=== PATIENT | female | born 1970 | race Caucasian/White ===

== ENCOUNTER → 2016-07-23 | Outpatient (CLI) | payer OTHER, BC ==
--- NOTE | 2016-07-23 16:48 | XR ---
EXAMINATION TYPE: XR knee complete RT DATE OF EXAM: 07/23/2016 4:44 PM COMPARISON: NONE HISTORY: Knee contusion TECHNIQUE: 3 view right knee FINDINGS: No acute fractures evident. Joint spaces are preserved. No joint effusion is present. IMPRESSION: 1. Normal three-view right knee
== END | disposition home or self-care (01) ==
LOC: RADXRMAIN 16:25
PROVIDERS: ATTEND Emergency Medicine
DX: S80.01XA Contusion of right knee, initial encounter (principal)

== ENCOUNTER → 2016-12-18 | Outpatient (CLI) | payer BC ==
[2016-12-18 13:41] LABS: Basophils % (A) 0 %; CH 31.9; CHCM 35.2; Eosinophils # (A) 0.1 k/uL (0-0.7); Eosinophils % (A) 1 %; HCT 46.5 % (34.0-46.0); HDW 2.75; HGB 15.6 gm/dL (11.4-16.0); Luc # (Auto) 0.09; Luc % (Auto) 2; Lymphocytes # (A) 1.5 k/uL (1.0-4.8); Lymphocytes % (A) 26 %; MCH 30.4 pg (25.0-35.0); MCHC 33.5 g/dL (31.0-37.0); MCV 90.9 fL (80.0-100.0); Mean Platelet Volume 7.4; Monocytes # (A) 0.4 k/uL (0-1.0); Monocytes % (A) 6 %; Neutrophils # (A) 3.6 k/uL (1.3-7.7); Neutrophils % (A) 65 %; RBC 5.12 m/uL (3.80-5.40); WBC 5.6 k/uL (3.8-10.6); WBC (Perox) 5.56
[2016-12-18 14:21] LABS: ALT 40 U/L (9-52); AST 30 U/L (14-36); Alkaline Phosphatase 110 U/L (38-126); Anion Gap 9 mmol/L; Blood Urea Nitrogen 14 mg/dL (7-17); Calcium 9.5 mg/dL (8.4-10.2); Carbon Dioxide 26 mmol/L (22-30); Chloride 106 mmol/L (98-107); Cholesterol 182 mg/dL (<200); Glucose 90 mg/dL (74-99); HDL Cholesterol 42 mg/dL (40-60); Non-African American GFR(MDRD) >60 (>60 ml/min/1.73 sqM); Potassium 4.4 mmol/L (3.5-5.1); Sodium 141 mmol/L (137-145); Total Bilirubin 0.6 mg/dL (0.2-1.3)
[2016-12-18 21:23] LABS: Hemoglobin A1C 5.5 % (4.2-6.1)
== END | disposition home or self-care (01) ==
LOC: LABWHC1 13:02
PROVIDERS: ATTEND Internal Medicine Critical Care Medicine
DX: Z00.00 Encounter for general adult medical examination without abnormal findings (principal); E03.9 Hypothyroidism, unspecified; F32.9 Major depressive disorder, single episode, unspecified; Z79.899 Other long term (current) drug therapy
CPT/HCPCS: 36415; 80053; 80061; 82306; 83036; 84439; 84443; 85025

== ENCOUNTER → 2018-05-06 | Outpatient (CLI) | payer BC ==
--- NOTE | 2018-05-12 10:19 | MM ---
Reason for exam: screening (asymptomatic). Last mammogram was performed 2 years and 10 months ago. History: Family history of breast cancer in mother at age 63, breast cancer in father at age 52, and breast cancer in aunt. Physical Findings: A clinical breast exam by your physician is recommended on an annual basis and results should be correlated with mammographic findings. MG 3D Screening Mammo W/Cad Bilateral CC and MLO view(s) were taken. Prior study comparison: July 17, 2015, bilateral MG 3d screening mammo w/cad. February 19, 2014, bilateral MG screening mammo w CAD. The breast tissue is heterogeneously dense. This may lower the sensitivity of mammography. There is no discrete abnormality. No significant changes when compared with prior studies. ASSESSMENT: Negative, BI-RAD 1 RECOMMENDATION: Routine screening mammogram of both breasts in 1 year.
== END | disposition home or self-care (01) ==
LOC: RADMAMWWP 16:49
PROVIDERS: ATTEND Obstetrics & Gynecology
DX: Z12.31 Encounter for screening mammogram for malignant neoplasm of breast (principal); Z80.3 Family history of malignant neoplasm of breast
CPT/HCPCS: 77063; 77067

== ENCOUNTER → 2023-07-13 | Outpatient (CLI) | payer BC ==
[2023-07-13 15:40] VITALS: BP 126/85; PULSE 92; RESP 17; TEMP 97.8
--- NOTE | 2023-07-13 16:07 | P.HPOB ---
History of Present Illness H&P Date: 07/13/23 Chief Complaint: The patient is here for her routine gynecologic exam and ma mmogram. This is a 53-year-old G for P 4005 with an LMP of December 2022. The patient is here to establish with this office. Her is status post vasectomy. It has been about 1 year since her last pelvic exam. She states her menstrual periods stopped for several months in 2021, then restarted in June 2022 and she has been amenorrheic since December 2022. She denies any significant hot flashes. She is otherwise without gynecologic complaints. Review of Systems The patient's weight has been stable over the last year. She denies respiratory, cardiac, or G.I. problems. Past Medical History Past Medical History: Asthma, Hypertension, Pneumonia, Thyroid Disorder Additional Past Medical History / Comment(s): PAST PASTRYCOOK HISTORY: She has no history of STDs. BRCA testing was negative per the patient. 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 sinus surgery at age 19. Saphenous vein ablation in the legs. Sinus surgery. Past Anesthesia/Blood Transfusion Reactions: Motion Sickness, Postoperative Nausea & Vomiting (PONV) Additional Past Anesthesia/Blood Transfusion Reaction / Comment(s): NEVER HAD BLOOD TRANSFUSION Past Psychological History: Anxiety Smoking Status: Never smoker Past Alcohol Use History: Occasional (0-3 drinks per week.) Past Drug Use History: None Reported Additional History: She has been since 1996. 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 - Past Family History Father Family Medical History: Cancer, Hypertension Additional Family Medical History / Comment(s): Breast cancer. Mother Family Medical History: Cancer Additional Family Medical History / Comment(s): Breast cancer. Brother(s) Family Medical History: Hypertension Medications and Allergies Home Medications Medication Instructions Recorded Confirmed Type Levothyroxine Sodium [Synthroid] 200 mcg PO DAILY 09/20/13 07/13/23 History Cholecalciferol [Vitamin D3] 2,000 unit PO DAILY 12/14/14 07/13/23 History Ibuprofen [Motrin] 600 mg PO Q6HR PRN #20 tab 12/14/14 07/13/23 Rx Chlorthalidone 25 mg PO DAILY 07/13/23 07/13/23 History Irbesartan 300 mg PO DAILY 07/13/23 07/13/23 History Levothyroxine Sodium [Synthroid] 175 mcg PO DAILY 07/13/23 07/13/23 History Metoprolol Succinate (ER) [Toprol 50 mg PO DAILY 07/13/23 07/13/23 History XL] Venlafaxine HCl ER [Effexor XR] 150 mg PO DAILY 07/13/23 07/13/23 History Allergies Allergy/AdvReac Type Severity Reaction Status Date / Time Penicillins Allergy Rash/Hives Verified 07/13/23 14:45 Sulfa (Sulfonamide Allergy Rash/Hives Verified 07/13/23 14:45 Antibiotics) Exam Vital Signs Temp Pulse Resp BP Pulse Ox 07/13/23 15:16 97.8 F 92 17 126/85 98 Intake and Output 07/13/23 07/13/23 07/13/23 06:59 14:59 22:59 Other: Weight 120.202 kg Height 5 feet 6 inches, weight 265 pounds, BMI 42.8. This is a well-developed well-nourished heavyset white female who is alert and oriented times 3 in no acute distress. HEENT: Within normal limits. NECK: Supple without mass or thyromegaly. CHEST AND LUNGS: Clear to auscultation. HEART: Regular rate and rhythm. BREASTS: Are without mass or discharge. AXILLARY EXAM: Negative for adenopathy. BACK: Negative for CVA tenderness. ABDOMEN: Soft, obese, nontender, without palpable masses. PELVIC EXAM: Normal external genitalia with minimal atrophy. Cervix and vagina appear normal minimal atrophy. There is no unusual discharge. There is no evidence of prolapse. The uterus is midposition, nongravid size and nontender. There are no palpable adnexal masses or tenderness. RECTAL EXAM: Rectovaginal exam is negative for mass or tenderness and is negative for occult blood. EXTREMITIES: Nontender. IMPRESSION: 1. 53-year-old perimenopausal female with episodes of oligomenorrhea without vasomotor symptoms, with normal gynecologic exam. 2. Family history of breast cancer in both of her parents. The patient states she tested negative for the BRCA mutations. PLAN: 1. Pap smear cotest was performed. 2. Self breast awareness was discussed with the patient. We have also discussed symptoms associated with inflammatory breast cancer. 3. Screening mammogram will be done today. 4. Osteoporosis prevention was discussed. I have stressed the importance of adequate calcium, vitamin D and regular exercise. Recommended amounts of calcium and vitamin D were also discussed. 5. The patient will be prescribed Effexor XR 150 mg daily. This was previously prescribed by Dr. Dr. 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 The electronic prescription will be sent to [facility] pharmacy in [place]. I have asked the patient to see if her PCP will be willing to prescribe this in the future, if needed. 6. Colorectal cancer screening was discussed. She completed the Cologuard testing 2 years ago. She will discuss future screening with her PCP. 7. She was advised to return in one year for her annual well woman exam.
== END ==
LOC: WWCWWP 14:36
PROVIDERS: ATTEND Obstetrics & Gynecology
DX: Z12.31 Encounter for screening mammogram for malignant neoplasm of breast (principal); F41.9 Anxiety disorder, unspecified; I10 Essential (primary) hypertension; J45.909 Unspecified asthma, uncomplicated; N91.5 Oligomenorrhea, unspecified; E07.9 Disorder of thyroid, unspecified; Z78.0 Asymptomatic menopausal state; Z80.3 Family history of malignant neoplasm of breast; Z79.899 Other long term (current) drug therapy; Z88.2 Allergy status to sulfonamides; Z88.0 Allergy status to penicillin; Z79.890 Hormone replacement therapy; Z87.01 Personal history of pneumonia (recurrent)
CPT/HCPCS: 77063; 77067